=== PATIENT | female | born 1990 | race Caucasian/White ===

== ENCOUNTER 2017-01-28 22:26 | Emergency (ER) | payer MEDICAID ==
[2017-01-28 22:27] VITALS: BP 129/76; PULSE 112; RESP 20; TEMP 99.4; O2SAT 98
[2017-01-28 22:54] LABS: BILIRUBIN, URINE NEG (NEG); BLOOD, URINE NEG (NEG); GLUCOSE,URINE NEG (NEG); KETONE, URINE NEG (NEG); NITRITE,URINE NEG (NEG); URINE LEUKOCYTE ESTERASE NEG (NEG)
[2017-01-28 22:56] LABS: URINE COLOR YELLOW (YELLW/STRAW)
[2017-01-28 22:59] LABS: RBC, URINE 0-3 /hpf (0-3); SQUAMOUS EPITHELIAL CELL URINE 0-5 /hpf (0-5)
[2017-01-29] MEDS ORDERED: FAMOTIDINE 20 MG/2 ML VIAL IV PUSH SCH (00:15)
[2017-01-29] MEDS ORDERED: SODIUM CHLOR 0.9% 1000 ML INJ 1,000 ML IV ONE (00:15)
[2017-01-29] MEDS ORDERED: KETOROLAC TROMETHAMINE 30 MG/ML (IVP) VIAL IV PUSH ONE (00:15)
[2017-01-29 00:55] VITALS: BP 116/66; PULSE 93; RESP 18; O2SAT 98
[2017-01-29 01:20] VITALS: RESP 16
[2017-01-29] MEDS ORDERED: guaiFENesin/CODEINE SYRUP 200 MG/20 MG/10 ML CUP PO ONE (01:30)
[2017-01-29] MEDS ORDERED: OSELTAMIVIR PHOSPHATE 6 MG/ML 60 ML SUSP PO ONE (01:30)
--- NOTE | 2017-01-29 01:39 | PD ---
HPI Chief Complaint: Flank/Kidney Pain Time Seen by Provider: 22:55 Travel History International Travel<30 days: No Contact w/Intl Traveler<30days: No Traveled to known affect area: No History of Present Illness HPI Patient is a 18-year-old female coming in saying she's been having a fever feeling generalized weakness she had some left-sided rib pain from coughing. She took Motrin with moderate relief of her symptoms but comes to the ER feeling exhausted feverish and coughing. No sick contacts. No one else she a illness. Patient does not appear to be toxic or in any distress she does look a little fabio faced and injected sclera bilateral has not seen another doctor for this complaint. PFSH Past Medical History Diminished Hearing: No Influenza Vaccination: No ?: Not LMP: WEEK AGO : 2 Para: 2 Miscarriage: 0 : 0 Social History Alcohol Use: Yes (occasional ) Tobacco Use: Yes (1 PPD) Substance Use: No Allergies-Medications (Allergen,Severity, Reaction): Coded Allergies: No Known Allergies (Verified Adverse Reaction, Unknown, 01/28/17) Reported Meds & Prescriptions Reported Meds & Active Scripts Active Ibuprofen Liq (Ibuprofen) 100 Mg/5 Ml Susp 600 Mg PO Q6H PRN Guaifenesin AC Liq (Guaifenesin-Codeine Liq) 100-10 Mg/5 Ml Syrp 10 Ml PO Q6H PRN Tamiflu Liq (Oseltamivir Phosphate) 6 Mg/Ml Nae 75 Mg PO BID Review of Systems Except as stated in HPI: all other systems reviewed are Neg General / Constitutional: Positive: Fever, Chills HENT: Positive: Sore Throat Respiratory: Positive: Cough Gastrointestinal: Positive: Abdominal Pain Physical Exam Narrative GENERAL: flushed face SKIN: Warm and dry. HEAD: Atraumatic. Normocephalic. EYES: Pupils equal and round. No scleral icterus. reddened injection sclera bilateral no drainage. ENT: No nasal bleeding or discharge. Mucous membranes pink and moist. red post pharynx NECK: Trachea midline. No JVD. CARDIOVASCULAR: Regular rate and rhythm. RESPIRATORY: No accessory muscle use. Clear to auscultation. Breath sounds equal bilaterally. GASTROINTESTINAL: Abdomen soft, non-tender, nondistended. Hepatic and splenic margins not palpable. MUSCULOSKELETAL: Extremities without clubbing, cyanosis, or edema. No obvious deformities. NEUROLOGICAL: Awake and alert. No obvious cranial nerve deficits. Motor grossly within normal limits. Five out of 5 muscle strength in the arms and legs. Normal speech. PSYCHIATRIC: Appropriate mood and affect; insight and judgment normal. Data Data Last Documented VS Vital Signs Date Time Temp Pulse Resp B/P (MAP) Pulse Ox O2 Delivery O2 Flow Rate FiO2 01/29/17 02:10 86 18 103/50 (67) 94 01/29/17 00:55 Room Air 01/28/17 22:27 99.4 Orders Orders Ed Urine Pregnancytest Poc (01/28/17 22:40) Urinalysis - C+S If Indicated (01/28/17 22:40) Ketorolac Inj (Toradol Inj) (01/29/17 00:15) Famotidine Inj (Pepcid Inj) (01/29/17 00:15) Influenzae A/B Antigen (01/29/17 00:07) Group A Rapid Strep Screen (01/29/17 00:07) Sodium Chlor 0.9% 1000 Ml Inj (Ns 1000 M (01/29/17 00:15) Strep Culture (Group A) (01/29/17 00:25) Oseltamivir Liq (Tamiflu Liq) (01/29/17 01:30) Guaifen-Cod 200-20 Mg/10ml Liq (Robituss (01/29/17 01:30) Ed Discharge Order (01/29/17 02:00) Labs Laboratory Tests Test 01/28/17 22:30 Urine Color YELLOW Urine Turbidity CLEAR Urine pH 6.0 Urine Specific [place] 1.006 Urine Protein NEG mg/dL Urine Glucose (UA) NEG mg/dL Urine Ketones NEG mg/dL Urine Occult Blood NEG Urine Nitrite NEG Urine Bilirubin NEG Urine Leukocyte Esterase NEG Urine RBC 0-3 /hpf Urine WBC 3-5 /hpf Urine Squamous Epithelial Cells 0-5 /hpf Microscopic Urinalysis Comment CULT NOT INDICATED MDM Medical Decision Making Medical Screen Exam Complete: Yes Emergency Medical Condition: Yes Differential Diagnosis Viral illness versus strep pharyngitis versus bacterial tracheitis versus influenza and other Narrative Course Patient has a positive flu swab she is given a liter of fluid Toradol Robitussin -AC and then Tamiflu to discharged to follow-up with symptomatically treatment as well as taking Tamiflu twice a day for 5 days Diagnosis Primary Impression: Influenza Patient Instructions: General Instructions, Influenza (ED) Scripts Ibuprofen Liq (Ibuprofen Liq) 100 Mg/5 Ml Susp 600 MG PO Q6H Y for FEVER, #300 ML 0 Refills Prov: Edgar Reilly MD 01/29/17 Guaifenesin-Codeine Liq (Guaifenesin AC Liq) 100-10 Mg/5 Ml Syrp 10 ML PO Q6H Y for COUGH, #1 BOTTLE 0 Refills Prov: Edgar Reilly MD 01/29/17 Oseltamivir Liq (Tamiflu Liq) 6 Mg/Ml Nae 75 MG PO BID for Mgmt Viral Infection, #75 ML 0 Refills Prov: Edgar Reilly MD 01/29/17 Edgar Reilly MD Jan 29, 2017 01:39
[2017-01-29] MEDS ORDERED: OSEL60SU PO (01:58)
[2017-01-29] MEDS ORDERED: GUAISYP4 PO (01:58)
[2017-01-29] MEDS ORDERED: IBUP100S11 PO (01:58)
[2017-01-29 02:10] VITALS: BP 103/50
== END 2017-01-29 02:20 | disposition home or self-care (01) ==
LOC: PHED 22:26
DX: J11.1 Influenza due to unidentified influenza virus with other respiratory manifestations (principal); F17.210 Nicotine dependence, cigarettes, uncomplicated
CPT/HCPCS: 81001; 84703; 87081; 87804; 87880; 96361; 96374; 96375; 99284; J1885; J7030